=== PATIENT | female | born 1975 | race Caucasian/White ===

== ENCOUNTER 2016-07-24 20:42 | Emergency (ER) | payer SELFPAY | END 2016-07-25 01:26 | disposition home or self-care (01) | LOC: FER 20:42 | DX: L23.4 Allergic contact dermatitis due to dyes (principal); M43.6 Torticollis; F17.210 Nicotine dependence, cigarettes, uncomplicated | CPT/HCPCS: J2930 ==

== ENCOUNTER 2016-09-16 06:19 | Emergency (ER) | payer SELFPAY ==
[2016-09-16 07:12] LABS: BILIRUBIN NEGATIVE (NEGATIVE); BLOOD 2+ Ery/uL (NEGATIVE); CLARITY CLEAR (CLEAR); COLOR YELLOW (YELLOW); GLUCOSE (U) NORMAL (NORMAL); KETONE (U) NEGATIVE (NEGATIVE); LEUKOCYTES NEGATIVE Leu/uL (NEGATIVE); NITRITE NEGATIVE (NEGATIVE); PROTEIN NEGATIVE (NEGATIVE); UROBILINOGEN 0.2 mg/dL (0.2-1.0)
[2016-09-16 07:17] LABS: BASOPHIL 0.3 % (0-2); EOSINOPHIL 1.7 % (0-5); HCT 35.9 % (37.0-47.0); HGB 12.3 g/dl (12.5-16.0); MCH 31.6 pg (25.0-31.0); MCHC 34.3 g/dL (32.0-36.0); MCV 92.3 fL (78.0-100.0); MONOCYTE 10.3 % (0-12); MPV 10.1 fL (6.0-9.5); NEUTROPHIL 67.7 % (41-80); PLT 217 K/uL (150-400); RBC 3.89 M/uL (4.20-5.40); RDW 13.2 % (11.5-14.0); WBC 6.9 K/uL (4.0-10.5)
[2016-09-16 07:43] LABS: CREATININE 0.7 mg/dL (0.5-1.0); POTASSIUM 4.1 mmol/L (3.5-5.1)
== END 2016-09-16 07:59 | disposition home or self-care (01) ==
LOC: FER 06:19
PROVIDERS: Emergency Medicine Emergency Medical Services
DX: N93.8 Other specified abnormal uterine and vaginal bleeding (principal); R82.90 Unspecified abnormal findings in urine; Z98.51 Tubal ligation status
CPT/HCPCS: 36415; 80048; 81001; 85025; 87088; 87210; J1885